=== PATIENT | female | born 1950 | race Caucasian/White ===

== ENCOUNTER 2016-07-20 08:29 | Emergency (ER) | payer OTHER ==
[2016-07-20 09:25] LABS: BASOPHIL % 0.5 % (0-2); PLATELET COUNT 287 x10^3mcL (130-400); RED CELL DISTRIBUTION WIDTH 13.6 % (11.5-14.5)
[2016-07-20 09:34] LABS: CALCIUM 8.6 mg/dL (8.5-10.1); CARBON DIOXIDE 30.9 mmol/L (21-32); CHLORIDE SERUM 102 mmol/L (98-107); CREATININE SERUM 0.8 mg/dL (0.6-1.0); GFR1 > 60 mL/min; GLUCOSE SERUM 131 mg/dL (74-106); POTASSIUM SERUM 3.9 mmol/L (3.5-5.1); SODIUM SERUM 141 mmol/L (136-145)
[2016-07-20 09:39] LABS: ALBUMIN 3.5 g/dL (3.4-5.0); ALKALINE PHOSPHATASE 65 U/L (46-116); ALT/SGPT 23 U/L (14-59); AST/SGOT 17 U/L (15-37); BILIRUBIN TOTAL 0.4 mg/dL (0.20-1.00); TOTAL PROTEIN, SERUM 7.2 g/dL (6.4-8.2)
[2016-07-20] MEDS ORDERED: ATENOLOL25 MG PO (11:02)
[2016-07-20] MEDS ORDERED: NORVASC2.5 MG PO (11:03)
[2016-07-20] MEDS ORDERED: SYNTHROID0.1 MG PO (11:03)
[2016-07-20] MEDS ORDERED: METFORMIN HYD1000 M2 PO (11:03)
[2016-07-20 14:40] VITALS: BP 133/60
== END 2016-07-20 14:40 | disposition short-term general hospital (02) ==
LOC: ED 08:29 → DU 11:04 → ED 11:04
PROVIDERS: Emergency Medicine
DX: R42 Dizziness and giddiness (principal); R00.1 Bradycardia, unspecified; I10 Essential (primary) hypertension; E11.9 Type 2 diabetes mellitus without complications; E03.9 Hypothyroidism, unspecified
CPT/HCPCS: 83880; J2060; J2405

== ENCOUNTER 2018-07-24 18:57 | Inpatient (IN) | payer OTHER, MEDICAID ==
[~2018-07-24] VITALS: Ht 160 cm; Wt 57.0 kg
[~2018-07-24 18:57] MED LIST: ATENOLOL25 MG PO; METFORMIN HYD1000 M2 PO; NORVASC2.5 MG PO; SYNTHROID0.1 MG PO
[2018-07-24 21:18] LABS: BASOPHIL % 0.5 % (0-2); PLATELET COUNT 266 x10^3mcL (130-400); RED CELL DISTRIBUTION WIDTH 12.9 % (11.5-14.5)
[2018-07-24 21:19] LABS: microscopic required? YES; urine erythrocyte NEGATIVE (NEGATIVE)
[2018-07-24 21:27] LABS: CALCIUM 8.7 mg/dL (8.5-10.1); CHLORIDE SERUM 102 mmol/L (98-107); CREATININE SERUM 0.7 mg/dL (0.6-1.0); GFR1 > 60 mL/min; GLUCOSE SERUM 145 mg/dL (74-106); POTASSIUM SERUM 3.8 mmol/L (3.5-5.1); SODIUM SERUM 135 mmol/L (136-145)
[2018-07-24 21:29] LABS: AMPHETAMINE QUAL UR NONE DETECTED (See below)
[2018-07-24 21:34] LABS: ALBUMIN 3.6 g/dL (3.4-5.0); ALKALINE PHOSPHATASE 66 U/L (46-116); ALT/SGPT 31 U/L (14-59); AST/SGOT 23 U/L (15-37); BILIRUBIN TOTAL 0.25 mg/dL (0.20-1.00); TOTAL PROTEIN, SERUM 7.8 g/dL (6.4-8.2)
[2018-07-24] MEDS ORDERED: ZESTRIL20 MG PO (21:45)
[2018-07-24 22:19] LABS: CHOLESTEROL/HDL RATIO 6.1
[2018-07-24 22:28] LABS: T3 TOTAL 1.04 ng/mL
[2018-07-24 22:40] LABS: FREE T4 1.05 ng/dL (0.76-1.46); FREE THYROXINE INDEX 3.6 ug/dL (1.4-4.5)
[2018-07-25 05:57] LABS: BASOPHIL % 0.4 % (0-2); PLATELET COUNT 274 x10^3mcL (130-400)
[2018-07-25 06:21] LABS: CALCIUM 8.5 mg/dL (8.5-10.1); CARBON DIOXIDE 30.7 mmol/L (21-32); CHLORIDE SERUM 105 mmol/L (98-107); CREATININE SERUM 0.7 mg/dL (0.6-1.0); GFR1 > 60 mL/min; GLUCOSE SERUM 142 mg/dL (74-106); SODIUM SERUM 140 mmol/L (136-145)
[2018-07-25 10:48] VITALS: BP 144/37
[2018-07-25 11:10] VITALS: BP 147/54
[2018-07-25 16:10] VITALS: BP 140/50
[2018-07-25 20:31] VITALS: BP 148/52
[2018-07-26 05:45] VITALS: BP 160/66
[2018-07-26 07:08] LABS: BASOPHIL % 0.3 % (0-2); PLATELET COUNT 281 x10^3mcL (130-400)
[2018-07-26 07:56] LABS: CALCIUM 8.6 mg/dL (8.5-10.1); CARBON DIOXIDE 27.3 mmol/L (21-32); CHLORIDE SERUM 104 mmol/L (98-107); CREATININE SERUM 0.8 mg/dL (0.6-1.0); GFR1 > 60 mL/min; GLUCOSE SERUM 133 mg/dL (74-106); PHOSPHOROUS 4.3 mg/dL (2.5-4.9); SODIUM SERUM 141 mmol/L (136-145)
[2018-07-26 08:45] VITALS: BP 158/58
[2018-07-26] MEDS ORDERED: ATORVASTATIN CA40 M1 PO (12:47)
[2018-07-26 13:00] VITALS: BP 152/65
[2018-07-26 16:06] VITALS: BP 152/65
== END 2018-07-26 16:24 | disposition home or self-care (01) | DRG 67 ==
LOC: ED 18:57 → DU 20:57 → UNDODEPER 07-25 20:57 → DU 07-26 16:24
PROVIDERS: Emergency Medicine; ADMIT Family Medicine
DX: I65.21 Occlusion and stenosis of right carotid artery (principal); N17.0 Acute kidney failure with tubular necrosis; G90.9 Disorder of the autonomic nervous system, unspecified; E11.65 Type 2 diabetes mellitus with hyperglycemia; I10 Essential (primary) hypertension; E78.5 Hyperlipidemia, unspecified; E03.9 Hypothyroidism, unspecified; Z79.84 Long term (current) use of oral hypoglycemic drugs
CPT/HCPCS: 82962; 84439; 90732; J7030; J8597; Q0092; Q9967